=== PATIENT | male | born 1955 | race Caucasian/White ===

== ENCOUNTER 2017-05-25 08:59 | Day surgery (SDC) | payer BC ==
[~2017-05-25] VITALS: Ht 190.5 cm; Wt 125.3 kg
[~2017-05-25 08:59] MED LIST: ALBU90OI61 INH; ASPI325; BENAML10/5; CLOM50A; GABA100 PO; HYDACE7.5; IBUP800 PO; IRBE75; Lisinopril2.5 MG; NEBI5; NEBI5 PO; OXYACE5T PO; ROFE25; SILDENAFIL20 MG; TAMS.4ER PO
== END 2017-05-25 11:46 | disposition home or self-care (01) ==
LOC: ORSCSDS 08:59
PROVIDERS: Internal Medicine Gastroenterology
PROC: 0DBH8ZX Excision of Cecum, Via Natural or Artificial Opening Endoscopic, Diagnostic (ICD-10-PCS; principal; 2017-05-25 10:30)
PROC: 0DBK8ZX Excision of Ascending Colon, Via Natural or Artificial Opening Endoscopic, Diagnostic (ICD-10-PCS; principal; 2017-05-25 10:30)
PROC: 0DBN8ZX Excision of Sigmoid Colon, Via Natural or Artificial Opening Endoscopic, Diagnostic (ICD-10-PCS; principal; 2017-05-25 10:30)
PROC: 0DBL8ZX Excision of Transverse Colon, Via Natural or Artificial Opening Endoscopic, Diagnostic (ICD-10-PCS; principal; 2017-05-25 10:30)
DX: Z12.11 Encounter for screening for malignant neoplasm of colon (principal); D12.0 Benign neoplasm of cecum; D12.2 Benign neoplasm of ascending colon; K63.5 Polyp of colon; I10 Essential (primary) hypertension; Z79.899 Other long term (current) drug therapy
CPT/HCPCS: 88305; J1980

== ENCOUNTER → 2019-01-12 | Outpatient (CLI) | payer BC | END | disposition home or self-care (01) | LOC: LAB SHORT 11:49 → LAB EV 11:49 | DX: R31.9 Hematuria, unspecified (principal) | CPT/HCPCS: 87086 ==

== ENCOUNTER → 2024-02-22 | Outpatient (CLI) | payer MEDICARE | END | disposition home or self-care (01) | LOC: LAB SHORT 14:51 → LAB 14:51 | DX: T14.8XXA Other injury of unspecified body region, initial encounter (principal); L08.9 Local infection of the skin and subcutaneous tissue, unspecified | CPT/HCPCS: 87070; 87075; 87077; 87186; 87205 ==

== ENCOUNTER → 2024-07-03 | Outpatient (CLI) | payer MEDICARE ==
[2024-07-03 13:48] LABS: Chloride, Urine, Random 89 mmol/L (55-125)
[2024-07-03 14:34] LABS: Osmolality, Urine 689 mos/kg (15-1400)
[2024-07-05 03:58] LABS: CREATININE, URINE - PER 24H 1612 mg/d (800-2100); CREATININE, URINE - PER VOLUME 124 mg/dL; HOURS COLLECTED 24 hr; TOTAL VOLUME 1300 mL; URINE, GLUCOSE - PER 24 HR 78 mg/dL (<=499); URINE, GLUCOSE - PER VOLUME 6 mg/dL (<=15)
== END | disposition home or self-care (01) ==
LOC: LAB SHORT 08:30 → LAB 08:30
PROVIDERS: Family Medicine
DX: R35.89 Other polyuria (principal)
CPT/HCPCS: 82436; 82570; 82945; 83935; 84133; 84300; 84540